=== PATIENT | male | born 1970 | race Caucasian/White ===

== ENCOUNTER → 2018-06-17 07:26 | Outpatient (CLI) | payer OTHER, SELFPAY ==
[2018-06-17 09:53] LABS: Add Manual Diff / Slide Review NO; Basophils Percent Auto 0.4 % (0-2); Eosinophils Percent Auto 3.6 % (2-4); Hematocrit 41.4 % (41-53); Hemoglobin 14.1 g/dL (13.5-17.5); Mean Corpuscular HGB Conc 34.1 % (30-36); Mean Corpuscular Hemoglobin 31.6 PG (26-34); Mean Corpuscular Volume 92.7 fL (80-100); Monocytes Percent Auto 10.7 % (3-14); Neutrophils Absolute Auto 2800 /uL (3000-5900); Neutrophils Percent Auto 62.3 % (50-75); Platelet Count 279 X10^3/uL (150-400); Red Blood Cell Count 4.46 X10^6/uL (4.5-5.9); White Blood Cell Count 4.5 X10^3/uL (4.5-11.0)
[2018-06-17 09:57] LABS: Alanine Aminotransferase 33 IU/L (21-72); Albumin 4.3 g/dL (3.5-5.0); Albumin Globulin Ratio 1.4 (1.0-2.8); Alkaline Phosphatase 63 U/L (38-126); Aspartate Aminotransferase 58 IU/L (17-59); BUN Creatinine Ratio 24.5 (6-22); Bilirubin Total 0.6 mg/dL (0.2-1.3); Blood Urea Nitrogen 27 mg/dL (9-20); Calcium 9.2 mg/dL (8.4-10.2); Carbon Dioxide 33 mmol/L (22-32); Chloride 96 mmol/L (98-107); Cholesterol 176 mg/dL (140-199); Estimated Glomerular Filt Rate > 60.0 mL/min (>60); Glucose 80 mg/dL (70-100); HDL Cholesterol 77 mg/dL (40-60); HEMOLYSIS < 15 (0-50); LDL Cholesterol Calculated 83 mg/dL (<100); Potassium 3.8 mmol/L (3.4-5.1); Sodium 136 mmol/L (137-145); Total Protein 7.3 g/dL (6.3-8.2); Triglycerides 78 mg/dL (35-150)
[2018-06-17 11:02] LABS: Thyroid Stimulating Hormone 2.77 uIU/mL (0.47-4.68)
[2018-06-23 14:59] LABS: Prostate Specific Antigen Scrn 0.252 ng/mL (0.1-4.0)
== END ==
PROVIDERS: PCP Family Medicine; Visit Provider Family Medicine
DX: Z13.220 Encounter for screening for lipoid disorders (principal); Z13.29 Encounter for screening for other suspected endocrine disorder
CPT/HCPCS: 36415; 80053; 80061; 84443; 85025; G0103

== ENCOUNTER → 2018-08-12 14:01 | Outpatient (CLI) | payer OTHER, SELFPAY ==
--- NOTE | 2018-09-04 07:50 | PM.CARDMON.1 ---
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 Referral & Results Date Patient Seen: 08/12/18 Requesting provider: Osbaldo Mccullough Indication: Bradycardia Duration of monitoring (days): 14 Diary information: There were no patient diary entries There were 12 patient triggered events all associated with sinus rhythm Data: Minimum heart rate identified was 32 beats per minute at 04:30 on 08/15/2018 Maximum heart rate was 170 beats per minute and sinus tachycardia, at 16:30 on 08/22/2018 Patient had 1 6 beat run of an SVT at a rate of 130 beats per minute (that is more likely atrial tachycardia) Less than 1% of identified beats or either ventricular supraventricular in origin Patient's heart rate was less than 50 for a significant portion of the time while patient was sleeping (presume sleeping given time frame from midnight to 06:00) Impression: Essentially normal drywall hanger. Mild bradycardia noted as above primarily when patient is sleeping. No significant pauses in addition to the mild bradycardia identified
--- NOTE | 2018-09-04 07:53 | P.HOLT.S_ITS ---
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 & Results Date Patient Seen: 08/12/18 Requesting provider: Osbaldo Mccullough Indication: Bradycardia Duration of monitoring (days): 14 Diary information: There were no patient diary entries There were 12 patient triggered events all associated with sinus rhythm Data: Minimum heart rate identified was 32 beats per minute at 04:30 on 2017 Maximum heart rate was 170 beats per minute and sinus tachycardia, at 16:30 on 08/22/2018 Patient had 1 6 beat run of an SVT at a rate of 130 beats per minute (that is more likely atrial tachycardia) Less than 1% of identified beats or either ventricular supraventricular in origin Patient's heart rate was less than 50 for a significant portion of the time while patient was sleeping (presume sleeping given time frame from midnight to 06:00) Impression: Essentially normal cardiac care nurse. Mild bradycardia noted as above primarily when patient is sleeping. No significant pauses in addition to the mild bradycardia identified
== END ==
PROVIDERS: Family Provider Family Medicine; PCP Family Medicine; Visit Provider Family Medicine
DX: R00.1 Bradycardia, unspecified (principal)
CPT/HCPCS: 0296T; 0298T

== ENCOUNTER → 2021-08-15 07:31 | Outpatient (CLI) | payer OTHER, SELFPAY ==
[2021-08-15 07:53] LABS: COVID19 -Nasal RAPID POSITIVE (Negative)
== END ==
PROVIDERS: Family Provider Family Medicine; PCP Family Medicine; Visit Provider Physician Assistant
DX: U07.1 COVID-19 (principal); R05 Cough; R09.81 Nasal congestion; Z20.822 Contact with and (suspected) exposure to COVID-19
CPT/HCPCS: 87635

== ENCOUNTER → 2023-01-02 13:53 | Outpatient (CLI) | payer OTHER, SELFPAY | PROVIDERS: Family Provider Family Medicine; PCP Family Medicine; Visit Provider Student in an Organized Health Care Education/Training Program | DX: S81.019A Laceration without foreign body, unspecified knee, initial encounter (principal) | CPT/HCPCS: 87070; 87077; 87147; 87186; 87205 ==

== ENCOUNTER → 2023-01-16 16:20 | Outpatient (CLI) | payer OTHER, SELFPAY ==
--- NOTE | 2023-01-16 16:22 | DI.MRI.S_ITS ---
PROCEDURE: MR KNEE LT WO CON INDICATIONS: LEFT KNEE INJURY TECHNIQUE: Noncontrast sagittal PD fast spin echo and T2 fast spin echo with fat saturation, sagittal 3-D FLASH with fat saturation; coronal T1 spin echo and PD fast spin echo with fat saturation, and axial PD fast spin echo with fat saturation through the knee. COMPARISON: None. FINDINGS: Image quality: Excellent. Menisci: The medial and lateral menisci demonstrate normal morphology and internal signal. The meniscal root ligaments appear intact. Cruciate ligaments: There is a [id number] sprain of the anterior cruciate ligament proximally. The majority of the fibers appear intact. The posterior cruciate ligament is intact. Medial structures: There is edema along the medial collateral ligament distally compatible with a mild sprain. There is associated periosteal fluid and edema tracking distally along the medial aspect of the proximal medial tibia. The semimembranosus tendon insertions are attenuated with intrasubstance edema consistent with a mild to moderate strain. The meniscocapsular junction appears intact. Visualized portions of the pes anserinus tendons appear intact with mild peritendinous edema but no discrete bursal fluid collection. Lateral structures: The lateral collateral ligament, long and short heads of the biceps femoris tendon appear intact. The popliteus tendon appears intact. Iliotibial band appears normal. Anterior structures: The quadriceps and patellar tendons appear intact. There is mild lateral tilt of the patella. No femoral trochlear dysplasia or ventral trochlear prominence. There is minimal edema within the infrapatellar fat pad. Bones and cartilage: There are bone marrow contusions posteriorly within the medial and lateral tibial plateaus with a minimally depressed impaction fracture of the posterior lateral tibial plateau. There is mild superficial chondral fraying along the medial femoral condyle. Articular cartilage appears overall preserved in thickness. Joint space: There is a minimal joint effusion. There is a small to moderate Ferguson's cyst with fluid and edema tracking distally superficial to the medial head of the gastrocnemius suggesting sequelae of partial cyst rupture. Normal appearing synovial plicae are incidentally noted. IMPRESSION: 1. Mild to moderate sprain of the ACL proximally with the majority of the fibers appearing intact. 2. Small bone marrow contusions of the posterior medial and lateral tibial plateaus with an associated minimally depressed impaction fracture of the lateral tibial plateau posteriorly. 3. Grade 1 sprain of the MCL distally with mild periosteal edema tracking distally along the medial aspect of the proximal tibia. 4. [id number] strain at the insertion of the semimembranosus tendon. 5. Small to moderate Ferguson's cyst with fluid and edema tracking inferiorly superficial to the medial head of the gastrocnemius suggestive of partial cyst rupture. Dictated by: Dominic Morales M.D. on 01/16/2023 at 20:27 Approved by: Dominic Morales M.D. on 01/16/2023 at 20:36
== END ==
PROVIDERS: Family Provider Family Medicine; PCP Family Medicine; Referring Provider Nurse Practitioner; Visit Provider Nurse Practitioner
DX: S83.512A Sprain of anterior cruciate ligament of left knee, initial encounter (principal); S83.412A Sprain of medial collateral ligament of left knee, initial encounter; S76.812A Strain of other specified muscles, fascia and tendons at thigh level, left thigh, initial encounter; S80.02XA Contusion of left knee, initial encounter; M71.22 Synovial cyst of popliteal space [Baker], left knee; X58.XXXA Exposure to other specified factors, initial encounter
CPT/HCPCS: 73721

== ENCOUNTER → 2024-01-07 08:07 | Outpatient (CLI) | payer OTHER, SELFPAY ==
[2024-01-07 08:42] LABS: Add Manual Diff / Slide Review NO; Basophils Absolute Auto 0 /uL (0-100); Basophils Percent Auto 0.6 % (0-2); Eosinophils Absolute Auto 100 /uL (0-450); Eosinophils Percent Auto 2.6 % (2-4); Hematocrit 41.9 % (41-53); Hemoglobin 14.6 g/dL (13.5-17.5); Lymphocytes Absolute Auto 1000 /uL (1100-4500); Lymphocytes Percent Auto 22.6 % (25-40); Mean Corpuscular HGB Conc 34.8 % (30-36); Mean Corpuscular Hemoglobin 32.8 PG (26-34); Mean Corpuscular Volume 94.3 fL (80-100); Monocytes Absolute Auto 400 /uL (0-900); Monocytes Percent Auto 9.3 % (3-14); Neutrophils Absolute Auto 2800 /uL (1500-7000); Neutrophils Percent Auto 64.9 % (50-75); Platelet Count 261 X10^3/uL (150-400); Red Blood Cell Count 4.44 X10^6/uL (4.5-5.9); Red Cell Distribution Width 12.9 % (11.6-14.8); White Blood Cell Count 4.3 X10^3/uL (4.5-11.0)
[2024-01-07 09:06] LABS: Alanine Aminotransferase 25 IU/L (<50); Albumin 4.2 g/dL (3.5-5.0); Albumin Globulin Ratio 1.3 (1.0-2.8); Alkaline Phosphatase 66 U/L (38-126); Aspartate Aminotransferase 41 IU/L (17-59); BUN Creatinine Ratio 15.8 (6-22); Bilirubin Total 0.8 mg/dL (0.2-1.3); Blood Urea Nitrogen 16 mg/dL (9-20); Carbon Dioxide 27 mmol/L (22-32); Chloride 105 mmol/L (98-107); Cholesterol 226 mg/dL (140-199); Estimated Glomerular Filt Rate > 60 mL/min (>60); Globulin 3.3 g/dL (1.7-4.1); Glucose 95 mg/dL (70-100); HDL Cholesterol 61 mg/dL (40-60); LDL Cholesterol Calculated 152 mg/dL (<100); Potassium 4.4 mmol/L (3.4-5.1); Sodium 139 mmol/L (137-145); Total Protein 7.5 g/dL (6.3-8.2); Triglycerides 66 mg/dL (35-150)
[2024-01-07 09:38] LABS: HEMOLYSIS < 15 (0-50); Prostate Specific Antigen 0.641 ng/mL (0.10-4.00)
== END ==
LOC: LAB 08:09
PROVIDERS: Family Provider Family Medicine; Referring Provider Naturopath; Visit Provider Naturopath
DX: Z00.00 Encounter for general adult medical examination without abnormal findings (principal); N40.1 Benign prostatic hyperplasia with lower urinary tract symptoms
CPT/HCPCS: 36415; 80053; 80061; 84153; 85025

== ENCOUNTER → 2024-04-19 11:31 | Outpatient (CLI) | payer OTHER, SELFPAY ==
[2024-04-21 19:37] LABS: Calprotectin, Stool 33 ug/g (0-120)
== END ==
PROVIDERS: Family Provider Family Medicine; Referring Provider Internal Medicine Gastroenterology; Visit Provider Internal Medicine Gastroenterology
DX: R19.7 Diarrhea, unspecified (principal)
CPT/HCPCS: 83993; 87045; 87329; 87493